=== PATIENT | male | born 1950 | race Caucasian/White ===

== ENCOUNTER → 2019-06-30 13:38 | Outpatient (CLI) | payer MEDICARE, OTHER | END | disposition home or self-care (01) | LOC: D.HCCECHO 13:30 | PROVIDERS: ATTEND Internal Medicine Cardiovascular Disease | DX: I10 Essential (primary) hypertension (principal) ==

== ENCOUNTER 2019-11-22 11:52 | Day surgery (SDC) | payer MEDICARE, OTHER ==
[~2019-11-22] VITALS: Ht 182.9 cm; Wt 108.2 kg
--- NOTE | ~2019-11-22 | HEMODYNAMI ---
PATIENT:MADISON DAMON MEDICAL RECORD: [id number] : 50 LOCATION:D.CAT ADMISSION DATE: 11/22/19 Generatedon:11/22/201913:21 Patient name: MADISON DAMON Patient #: [id number] SSN: : 1950 Date of study: 11/22/2019 Page: Of Hemodynamic Procedure Report Patient Data Patient Demographics Procedure consent was obtained First Name: MADISON Gender: Male Last Name: MARISOL : 1950 Middle Initial: D Age: 69 year(s) Patient #: [id number] Race: Unknown Additional ID: [id number] Contact details Address: [address] [place] [address] [place] State: [place] City: [place] Zip code: [address] Past Medical History Allergies: No known allergies Admission Admission Data Admission Date: 11/22/2019 Admission Time: 11:52 Lab Results Lab Result Date: 11/22/2019 Lab Result Time: 0:28 Biochemistry Name Units Result Min Max BUN mg/dl 20 --(----)*- 7 18 Creatinine mg/dl 1.2 --(---*)-- 0.6 1.3 CBC Name Units Result Min Max Hematocrit % 43.8 --(*---)-- 42 54 Hemoglobin g/dl 14.7 --(-*--)-- 13.5 17.5 Procedure Procedure Types Cath Procedure Diagnostic Procedure Cardioversion External Procedure Description Procedure Date Procedure Date: 11/22/2019 Procedure Start Time: 13:09 Procedure End Time: 13:19 Procedure Staff Name Function Joshua Baldwin MD Performing Physician Carolina Araujo RT Monitor Flakito Presley RT Monitor Nadiya Jean RN Nurse Jeremiah Meza CRNA Additional personnel Procedure Data Cath Procedure Fluoroscopy Diagnostic fluoroscopy Total fluoroscopy Time: 0 time: 0 min min Diagnostic fluoroscopy Total fluoroscopy dose: 0 dose: 0 mGy mGy Contrast Material Contrast Material Type Amount (ml) Isovue 300 0 Procedure Complications No complications Procedure Medications Medication Administration Route Dosage Oxygen NC 3 l/min 0.9% NaCl I.V. 100 ml/hr Refer to Anesthesia Notes for Sedation Medications Hemodynamics Rest HGB: 14.7 (g/dl) Heart Rate: 56 (bpm) Snapshots Pre Cath Intra NCS Post Cath Vital Signs Time Heart Resp SPO2 etCO2 NIBP (mmHg) Rhythm Pain Sedation Rate (ipm) (%) (mmHg) Status Level (bpm) 12:58:36 64 9 96 0 138/86(110) NSR (Missing) 10(A) 13:02:40 64 14 98 30.9 142/72(102) NSR (Missing) 10(A) 13:06:36 60 10 98 29.4 134/85(114) NSR (Missing) 10(A) 13:11:04 58 15 94 26.4 108/68(81) NSR (Missing) 9(A) 13:15:08 60 12 97 17.3 108/63(80) NSR (Missing) 9(A) 13:19:28 31.7 No Cuff NSR (Missing) 10(A) Medications Time Medication Route Dose Verified Delivered Reason Notes Effectiven ess by by 13:00:58 Oxygen NC 3 Joshua Nadiya for low l/min Denny Jean 02 sats RN 13:01:09 0.9% NaCl I.V. 100 Joshua Nadiya used for ml/hr Denny Jean manager of distribution 13:01:23 Refer to Joshua Nadiya for Anesthesia Denny Jean sedation Notes for RN Sedation Medications Procedure Log Time Note 12:46:48 Informed consent obtained and on chart 12:47:18 Procedure Status Cardioversion. 12:47:19 Carolina Araujo RT(R) sent for patient. Start room use. 12:47:20 Time tracking: Regular hours (M-F 7:00 - 5:00) 12:47:22 Plan of Care:Hemodynamics will remain stable., Cardiac rhythm will remain stable., Comfort level will be maintained., Respiratory function will remain adequate., Patient/ family verbilizes understanding of procedure., Procedure tolerated without complication., Recovers from procedure without complications.. 12:50:30 Jeremiah Meza CRNA present and monitoring patient for TIVA. 12:53:34 Patient arrived from Pre/Post Procedure Room to [facility]. Patient remains on bed/stretcher for procedure. 12:53:35 Warm blankets applied, and kamini hugger turned on for patient comfort. 12:53:35 Correct patient and procedure confirmed by team. 12:53:37 ECG and BP/O2 sat monitors applied to patient. 12:53:44 H&P Date Dictated: 11/11/2019 Within 30 days and on chart., H&P Addendum completed by physician on day of procedure. (MUST COMPLETE FOR ALL OUTPATIENTS). 12:53:46 Pre-procedure instructions explained to patient. 12:53:46 Pre-op teaching completed and patient verbalized understanding. 12:53:47 Family in waiting room. 12:53:48 Patient NPO since Midnight. 12:53:55 Patient allergic to No known allergies 12:53:57 Is the patient allergic to Iodine/contrast media? No. 12:53:58 Is patient on blood thinner?Yes 12:54:01 ACC The patient was administered the following blood thiners within the last 24 hours: Eliquis 12:54:41 Patient diabetic? No. 12:54:44 Previous problem with sedation/anesthesia? No ? 12:54:45 Snore? Yes 12:54:46 Sleep apnea? No 12:54:46 Deviated septum? No 12:54:47 Opens mouth fully? Yes 12:54:47 Sticks out tongue? Yes 12:54:50 Airway obstruction? No ? 12:54:52 Dentures? No ? 12:56:58 IV patent on arrival in left hand with 0.9% NaCl at [facility]. 12:57:27 Lab Result : BUN 20 mg/dl 12:57:27 Lab Result : Creatinine 1.2 mg/dl 12:57:27 Lab Result : Hemoglobin 14.7 g/dl 12:57:27 Lab Result : Hematocrit 43.8 % 12:57:29 Lab results completed and on chart. 12:57:32 Alarms reviewed by Samson Garcia 12:57:39 Quick Combo opened to sterile field. 12:57:44 Quick combo pads placed on patients chest and back. 12:57:51 Vital chart was started 12:58:15 Baseline sample Acquired. 12:58:33 Rhythm: atrial flutter 13:00:58 Oxygen 3 l/min NC was administered by Nadiya Jean RN; for low 02 sats; Verbal order read back and verified. 13:01:09 0.9% NaCl 100 ml/hr I.V. was administered by Nadiya Jean RN; used for procedure; Verbal order read back and verified. 13:01:23 Refer to Anesthesia Notes for Sedation Medications was administered by Nadiya Jean RN; for sedation; Verbal order read back and verified. 13:01:36 Full Disclosure recording started 13:06:52 Physician arrived 13:06:52 --------ALL STOP TIME OUT------ 13:06:53 Final Timeout: patient, procedure, and site verified with staff and physician. All members of the team are in agreement. 13:07:05 Physical assessment completed. ASA score P 3 - A patient with severe systemic disease as per Joshua Baldwin MD. 13:07:10 Sedation plan: TIVA Medication:Propofol 13:07:11 Procedure started. 13:08:59 Defibrillator synced and charged to 100 Joules. 13:09:00 Shock delivered. 13:10:18 Defibrillator synced and charged to 200 Joules. 13:10:21 Shock delivered. 13:11:12 Patient cardioverted to sinus rhythm . 13:11:16 Procedure ended.(Physican Out) 13:16:05 Fluoroscopy time 00.00 minutes. 13:16:07 Fluoroscopy dose: 0 mGy 13:16:07 Flurop Dose total: 0 13:16:08 Dose Area Product 0 mGy/cm. 13:16:11 Contrast amount:Isovue 300 0ml. 13:16:16 Post procedure instruction explained to patient.Patient verbalizes understanding. 13:16:18 Patient needs reinforcement of post procedure teaching. 13:16:29 Procedure and supply charges have been captured, reviewed, submitted and are correct. 13:16:31 Procedure Complication : No complications 13:19:28 Vital chart was stopped 13:19:30 See physician's report for complete and final results. 13:19:31 Report given to Pre/Post Procedure Room. 13:19:32 Patient transfered to Pre/Post Procedure Room with Stretcher. 13:19:34 Procedure ended. 13:19:34 Full Disclosure recording stopped 13:20:03 End room use (Document Last) 13:20:20 End room use (Document Last) 13:20:31 Flakito Presley RT(R) was relieved by Flakito Presley RT(R) as monitoring person 13:20:31 End room use (Document Last) 13:20:51 End room use (Document Last) 13:21:07 Flakito Presley RT(R) was relieved by Flakito Presley RT(R) as monitoring person 13:21:07 End room use (Document Last) Device Usage Item Manufacture Quantity Catalog Hospital Part Current Minimal Lot# / Name Number Charge Number Stock Stock Ren al# Code [employer] 1 [id number] Combo Signature Audit [place] Stage Time Signature Unsigned Intra-Procedure 11/22/2019 Flakito Presley 1:20:20 PM RT(R) Intra-Procedure 11/22/2019 Nadiya 1:20:51 PM Ted [place] Intra-Procedure 11/22/2019 Joshua Baldwin MD 1:21:26 PM [id number] [place] [address]
[2019-11-22] MEDS ORDERED: LOPRESSOR25 MG PO (12:07)
[2019-11-22] MEDS ORDERED: PROPAFENONE HC225 MG PO (12:07)
[2019-11-22] MEDS ORDERED: NIASPAN1000 MG PO (12:08)
[2019-11-22] MEDS ORDERED: BAYER CHEWABLE81 MG PO (12:08)
[2019-11-22] MEDS ORDERED: CRESTOR40 MG PO (12:08)
[2019-11-22] MEDS ORDERED: CARDURA4 MG PO (12:09)
[2019-11-22] MEDS ORDERED: CELEXA20 MG PO (12:09)
[2019-11-22] MEDS ORDERED: XARELTO15 MG PO (12:09)
[2019-11-22 12:27] VITALS: BP 132/81; Ht 182.9 cm; Wt 108.2 kg
[2019-11-22 12:30] LABS: BASOPHILS 0.3 % (0-2); EOSINOPHILS 3.1 % (0-7); HEMATOCRIT 43.8 % (42.0-54.0); HEMOGLOBIN 14.7 g/dL (13.5-17.5); IMMATURE GRANULOCYTES 0.3 % (0-5); LYMPHOCYTES 39.3 % (15-50); MCH 31.5 pg (26.0-34.0); MCHC 33.6 g/dL (31.0-37.0); MEAN PLATELET VOLUME 9.2 fL (7.4-10.4); PLATELET COUNT 136 10x3/uL (130-400); RBC 4.66 10x6/uL (4.20-6.10); RDW 13.4 % (11.5-14.5); WBC 6.1 10x3/uL (4.8-10.8)
[2019-11-22 12:39] LABS: ANION GAP 9.6 mmol/L (8-16); CARBON DIOXIDE 24.5 mmol/L (21.0-32.0); CREATININE - SERUM 1.2 mg/dL (0.6-1.3); INR 1.48 (0.85-1.17); POTASSIUM - SERUM 4.1 mmol/L (3.5-5.1); PROTIME 17.8 SECONDS (11.6-15.0)
--- NOTE | 2019-11-22 13:25 | NUR ---
PT RECEIVED VIA STRETCHER FROM CORPORATE LEARNING CONSULTANT POST SUCCESSFUL CARDIOVERSION. PT AWAKE BUT STILL DROWSY, DENIES PAIN OR DISCOMFORT AT THIS TIME. SMALL RED AREA IN MIDDLE OF CHEST FROM CARDIOVERSION. PT PLACED ON CARDIAC MONITORS AND O2 VIA NC AT 2L. HR NSR RATE 60, BP 105/54, RR 11, SAT 94. IV PATENT INFUSING VIA ORDERS, CALL LIGHT IN REACH. AT BS.
--- NOTE | 2019-11-22 13:45 | NUR ---
PT RESTING COMFORTALBY, DENIES PAIN OR NEEDS. VSS AT PRESENT, HR REMAINS NSR. PT TOLERATING PO FLUIDS, OFFERED SANDWICH TRAY, DECLINES AT THIS TIME. CALL LIGHT IN REACH, AT BS
--- NOTE | 2019-11-22 14:15 | NUR ---
PT DOING WELL, VSS. DR ZABALA AT , NO NEW ORDERS RECEIVED. CALL LIGHT IN REACH
--- NOTE | 2019-11-22 14:34 | NUR ---
DISCHARGE INSTRUCTIONS REVIEWED W PT AND , BOTH VERBALIZED UNDERSTANDING. IV REMOVED W CATH INTACT, MONITORS REMOVED. PT UP TO DRESS FOR DISCHARGE. HR REMAINS IN SR.
--- NOTE | 2019-11-22 14:42 | NUR ---
PT AMBULATED TO BR, VOIDING W/O DIFFICULITY. PT THEN DISCHARGED VIA WC TO WAITING IN PRIVATE VEHICLE. PT HAD ALL BELONGINGS AND DISCHARGE PAPERWORK.
== END 2019-11-22 14:40 | disposition home or self-care (01) ==
LOC: D.CATH 11:52
PROVIDERS: ATTEND Internal Medicine Cardiovascular Disease
DX: I48.91 Unspecified atrial fibrillation (principal); E78.5 Hyperlipidemia, unspecified; I10 Essential (primary) hypertension; I25.10 Atherosclerotic heart disease of native coronary artery without angina pectoris